=== PATIENT | female | born 1935 | race Caucasian/White ===

== ENCOUNTER 2019-08-27 15:48 | Emergency (ER) | payer MEDICARE, OTHER ==
[2019-08-27] MEDS: Aspirin 81 MG Tab.Chew PO ONE (16:31)
[2019-08-27] MEDS: Heparin Sodium 5,000 Units/ML Vial IVPUSH ONE (16:37)
--- NOTE | 2019-08-27 16:41 | EDM.PDOC ---
ED HPI GENERAL MEDICAL PROBLEM - General Chief Complaint: Chest Pain Stated Complaint: CHEST PAIN Time Seen by Provider: 08/27/19 15:59 Source of Information: Reports: Patient History Limitations: Reports: No Limitations - History of Present Illness INITIAL COMMENTS - FREE TEXT/NARRATIVE: Pt had severe left sided chest pain on 08/24 Was 8/10 Pain today is still in left chest at 2-3/10 Pt seen in clinic Noted to have elevated Troponin of 0.096 and elevated D-dimer of 1.51 Sent to ER from clinic No SOB No fever No hx/o same previously Onset: Sudden Duration: Day(s):, Improving Location: Reports: Chest Associated Symptoms: Reports: No Other Symptoms - Related Data Allergies Allergy/AdvReac Type Severity Reaction Status Date / Time morphine Allergy Nausea and Verified 08/27/19 16:40 Vomiting ED ROS GENERAL - Review of Systems Review Of Systems: See Below Respiratory: Reports: No Symptoms Cardiovascular: Reports: Chest Pain GI/Abdominal: Reports: No Symptoms ED EXAM, GENERAL - Physical Exam Exam: See Below Exam Limited By: No Limitations Neck: Supple Respiratory/Chest: Lungs Clear Cardiovascular: Regular Rate, Rhythm GI/Abdominal: Soft, Non-Tender Extremities: Other (Right leg in splint boot) Neurological: Alert, Oriented, No Motor/Sensory Deficits Course - Orders/Labs/Meds Orders: Active Orders 24 hr Category Date Time Status PTT,PARTIAL THROMBOPLSTIN TIME [COAG] Stat Lab 08/27/19 16:31 Ordered Heparin Sodium/0.45% NaCl [Heparin 25,000 Units in 1/2 Med 08/27/19 16:30 Active NS 500 ML] 25,000 units in 500 ml IV TITRATE Medication Orders Heparin Sodium/Sodium Chloride (Heparin 25,000 Units In 1/2 Ns 500 Ml) 25,000 units in 500 mls @ 14.4 mls/hr IV TITRATE [facility]; Protocol Meds: Medications Generic Name Dose Route Start Last Admin Trade Name Freq PRN Reason Stop Dose Admin Heparin Sodium/Sodium Chloride 25,000 units in 500 mls @ 14.4 mls/hr 08/27/19 16:30 Heparin 25,000 Units In 1/2 Ns 500 Ml IV TITRATE [facility] Protocol 720 UNITS/HR Discontinued Medications Generic Name Dose Route Start Last Admin Trade Name Freq PRN Reason Stop Dose Admin Aspirin 324 mg 08/27/19 16:29 08/27/19 16:31 Aspirin PO 08/27/19 16:30 324 mg ONETIME ONE Administration Heparin Sodium (Porcine) 3,600 units 08/27/19 16:30 Heparin Sodium IVPUSH 08/27/19 16:31 .BOLUS ONE - Re-Assessments/Exams Free Text/Narrative Re-Assessment/Exam: 08/27/19 16:38 D/W [facility] on-call Dr Spencer On-call hospitalist will accept in transfer Pt given ASA 324 mg PO and started on Heparin bolus and drip Departure - Departure Time of Disposition: 16:45 Disposition: DC/Tfer to [facility] 02 Reason for Transfer *Q: Primary PCI Indicated Clinical Impression: NSTEMI (non-ST elevated myocardial infarction) Forms: ED Department Discharge, Interfacility Transfer EMTALA - My Orders Last 24 Hours: My Active Orders 08/27/19 16:30 Heparin Sodium/0.45% NaCl [Heparin 25,000 Units in 1/2 NS 500 ML] 25,000 units in 500 ml IV TITRATE 08/27/19 16:31 PTT,PARTIAL THROMBOPLSTIN TIME [COAG] Stat - Assessment/Plan Last 24 Hours: My Active Orders 08/27/19 16:30 Heparin Sodium/0.45% NaCl [Heparin 25,000 Units in 1/2 NS 500 ML] 25,000 units in 500 ml IV TITRATE 08/27/19 16:31 PTT,PARTIAL THROMBOPLSTIN TIME [COAG] Stat
[2019-08-27] MEDS: Heparin Sodium/0.45% NaCl 25,000 UNITS/500 ML BAG IV SCH (16:45)
== END 2019-08-27 17:05 | disposition short-term general hospital (02) ==
LOC: VM.ED 15:48
DX: I21.4 Non-ST elevation (NSTEMI) myocardial infarction (principal); Z88.5 Allergy status to narcotic agent
CPT/HCPCS: 36415; 85730; 96365; 99283-GF; 99285-25; A9270-GY; J1644

== ENCOUNTER 2024-08-15 16:45 | Emergency (ER) | payer MEDICARE, OTHER ==
[2024-08-15] MEDS: HYDROmorphone 0.5 MG/0.5 ML Syringe IVPUSH ONE ×2 (16:57→18:03)
[2024-08-15 17:03] LABS: BASOPHILS PERCENT AUTO 0.1 % (0.2-1.2); HEMATOCRIT 43.6 % (33.0-47.0); HEMOGLOBIN 14.6 g/dL (12.0-16.0); LYMPHOCYTES ABSOLUTE AUTO 0.7 x10^3/uL (1.0-4.8); LYMPHOCYTES PERCENT AUTO 5.1 % (25.0-50.0); MEAN CORPUSCULAR HEMOGLOBIN 33.1 pg (26.0-32.0); MEAN CORPUSCULAR HGB CONC 33.5 g/dL (32.0-36.0); MEAN CORPUSCULAR VOLUME 98.9 fL (78.0-93.0); MONOCYTES ABSOLUTE AUTO 0.6 x10^3/uL (0.0-0.8); MONOCYTES PERCENT AUTO 4.1 % (2.0-11.0); NEUTROPHILS ABSOLUTE AUTO 12.7 x10^3/uL (1.8-7.7); PLATELET COUNT,PLT 182 x10^3/uL (130-400); RED BLOOD CELL COUNT 4.41 x10^6/uL (4.00-5.50); WHITE BLOOD CELL COUNT,WBC 14.2 x10^3/uL (4.0-10.0)
[2024-08-15] MEDS: Ondansetron 4 MG/2 ML SDV IVPUSH ONE ×2 (17:15→20:15)
[2024-08-15 17:22] LABS: CREATININE 1.2 mg/dL (0.55-1.02); EST CRCL DRUG DOSING (CG) 25.14 mL/min
[2024-08-15 17:29] LABS: APPEARANCE,URINE CLEAR (CLEAR); BILIRUBIN,URINE LARGE (NEGATIVE); COLOR,URINE YELLOW (YELLOW); GLUCOSE,URINE NEGATIVE (NEGATIVE); KETONES,URINE 40 mg/dL (NEGATIVE); LEUKOCYTE ESTERASE,URINE NEGATIVE (NEGATIVE); NITRITE,URINE NEGATIVE (NEGATIVE); OCCULT BLOOD,URINE NEGATIVE (NEGATIVE); PROTEIN,URINE TRACE mg/dL (NEGATIVE)
[2024-08-15 17:30] LABS: A/G RATIO 1.09; ALBUMIN 3.6 g/dL (3.4-5.0); BILIRUBIN TOTAL 1.4 mg/dL (0.2-1.0); CALCIUM 9.5 mg/dL (8.5-10.1); PROTEIN TOTAL,TP 6.9 g/dL (6.4-8.2)
[2024-08-15 17:31] LABS: BACTERIA,URINE NOT SEEN /HPF (NOT SEEN); MUCUS,URINE RARE /LPF (NOT SEEN); RBC,URINE 0-5 /HPF (NOT SEEN); SQUAMOUS EPITHELIAL CELLS,UR FEW /HPF (NOT SEEN); WBC,URINE 0-5 /HPF (NOT SEEN)
[2024-08-15] MEDS: Iopamidol 612 MG/ML 100 ML Bottle IVPUSH ONE (18:08)
[2024-08-15] MEDS: Sodium Chloride 0.9% 1,000 ML IV SCH (19:25)
[2024-08-15] MEDS: HYDROmorphone 1 MG/ML Syringe IVPUSH ONE (20:20)
[2024-08-15] MEDS: Lidocaine 4% 5 ML Amp TOP ONE (20:57)
== END 2024-08-15 21:50 | disposition short-term general hospital (02) ==
LOC: VM.ED 16:45
DX: K56.609 Unspecified intestinal obstruction, unspecified as to partial versus complete obstruction (principal); I25.2 Old myocardial infarction; E03.9 Hypothyroidism, unspecified; Z90.49 Acquired absence of other specified parts of digestive tract; Z79.899 Other long term (current) drug therapy; Z79.51 Long term (current) use of inhaled steroids; Z79.890 Hormone replacement therapy; Z79.52 Long term (current) use of systemic steroids; Z88.5 Allergy status to narcotic agent; Z88.8 Allergy status to other drugs, medicaments and biological substances
CPT/HCPCS: 36415; 43752; 74018; 80053; 81001; 83690; 85025; 96361; 96374; 96375; 96376; 99284; 99285-25; J1171; J2405; J7030; Q9967